=== PATIENT | male | born 1945 | race Caucasian/White ===

== ENCOUNTER → 2017-01-20 | Outpatient (CLI) | payer MEDICARE, BC ==
[2017-01-23 21:33] LABS: Beef IgG 14.7 mcg/mL (< 2.0); Pork IgG 3.2 mcg/mL (< 2.0)
[2017-01-23 21:34] LABS: Chicken Meat IgG 4.4 mcg/mL (< 2.0); Coffee IgG 3.2 mcg/mL (< 2.0); Corn IgG 6.2 mcg/mL (< 2.0); Cow's Milk IgG 84.6 mcg/mL (< 2.0); Peanut IgG 3.7 mcg/mL (< 2.0); Potato IgG 3.3 mcg/mL (< 2.0); Soybean IgG 4.2 mcg/mL (< 2.0); Tomato IgG 6.3 mcg/mL (< 2.0); Wheat IgG 11.1 mcg/mL (< 2.0)
== END | disposition home or self-care (01) ==
LOC: LABWHC1 09:57
PROVIDERS: ATTEND Otolaryngology
DX: J30.89 Other allergic rhinitis (principal)
CPT/HCPCS: 36415; 86001

== ENCOUNTER 2017-05-17 12:21 | Day surgery (SDC) | payer MEDICARE, BC ==
[2017-05-13 09:54] VITALS: BMI 24.4
[~2017-05-17 12:21] MED LIST: LIDOCAINE 1% 20 ML VIAL (10MG/ML) FOR IV START INTRADERMA PRN
[2017-05-17 12:49] VITALS: RESP 16; TEMP 96.8
[2017-05-17] MEDS: LACTATED RINGERS 1,000 ML IV SCH ×2 (13:04→13:40)
[2017-05-17] MEDS ORDERED: PROPOFOL 10 MG/ML 20 ML VIAL IV ONE (13:42)
--- NOTE | 2017-05-17 14:33 | P.PCN ---
Date of Procedure: 05/17/17 Preoperative Diagnosis: Postoperative Diagnosis: Procedure(s) Performed: Procedure: Total colonoscopy. Preoperative diagnosis: Hemoccult-positive stools. Postoperative diagnosis: Diverticulosis with no evidence of acute diverticulitis , strictures, polyps or cancer or any evidence of bleeding. Preparation HalfLytely prep. Sedation was provided by anesthesia. Brief clinical history: The patient is 71-year-old male who is referred for this evaluation because of finding of Hemoccult positive stools. The patient had several colonoscopies over the years because of history of polyps and the last was around 4 or 5 years ago. There is no overt bleeding. There is history of weight loss of around 25 pounds over the last 4 months. Procedure: With the patient on his left lateral decubitus position and after informed consent and adequate sedation, the perianal area was inspected and it did not show any fissures or fistulas. There were no masses felt on digital rectal examination. The Olympus CFQ 160L video colonoscope was then inserted in the rectum and the usual fashion and advanced to the cecum. The preparation was poor but I was able to advance the endoscope without difficulty. Where visualized, the mucosa appeared healthy. Multiple diverticular orifices were seen scattered on the left side without any evidence of acute diverticulitis or strictures. There was occasional small diverticular orifice around the hepatic flexure and on the right side. No bleeding or potential sources of bleeding noted. I retroflexed the endoscope in the rectum before the endoscope was withdrawn. The patient tolerated the procedure well. Plan: The patient was reassured. He will follow up with you as planned. Further plans can include upper GI workup or imaging studies especially in light of his weight loss. I would be happy to see in the future. Implants: Indications for Procedure: Operative Findings: Description of Procedure:
[2017-05-17 14:34] VITALS: PULSE 75
[2017-05-17 14:48] VITALS: BP 136/73
== END 2017-05-17 15:11 | disposition home or self-care (01) ==
LOC: ORWHC2ENDO 12:21
DX: R19.5 Other fecal abnormalities (principal); K57.30 Diverticulosis of large intestine without perforation or abscess without bleeding; Z86.010 Personal history of colon polyps; Z88.1 Allergy status to other antibiotic agents; Z88.5 Allergy status to narcotic agent; F17.200 Nicotine dependence, unspecified, uncomplicated; Z85.118 Personal history of other malignant neoplasm of bronchus and lung; Z79.899 Other long term (current) drug therapy
CPT/HCPCS: J2704; G0105